=== PATIENT | female | born 2000 | race Caucasian/White ===

== ENCOUNTER 2025-02-12 14:30 | Emergency (ER) | payer OTHER ==
[~2025-02-12] VITALS: Ht 149.9 cm; Wt 108.1 kg
[2025-02-12] MEDS ORDERED: ONDA-282 PO (16:57)
[2025-02-12] MEDS: IBUPROFEN 800 MG TAB PO ONE (16:59)
[2025-02-12 17:03] VITALS: BP 140/87; TEMP 96.9; O2SAT 100
== END 2025-02-12 17:06 | disposition home or self-care (01) ==
LOC: M ED 14:30
DX: S06.0X0A Concussion without loss of consciousness, initial encounter (principal); Y04.0XXA Assault by unarmed brawl or fight, initial encounter; Y92.009 Unspecified place in unspecified non-institutional (private) residence as the place of occurrence of the external cause; Y93.89 Activity, other specified; Y99.9 Unspecified external cause status; Z88.1 Allergy status to other antibiotic agents; Z79.83 Long term (current) use of bisphosphonates